=== PATIENT | male | born 1970 | race Two or more races ===

== ENCOUNTER 2020-04-26 17:25 | Emergency (ER) | payer MEDICAID ==
[~2020-04-26] VITALS: Ht 165.1 cm; Wt 83.0 kg
[2020-04-26 17:29] VITALS: Ht 165.1 cm; Wt 83.0 kg
[2020-04-26 18:39] VITALS: BP 156/96
== END 2020-04-26 18:39 | disposition home or self-care (01) ==
LOC: ED 17:25
DX: S52.502A Unspecified fracture of the lower end of left radius, initial encounter for closed fracture (principal); W11.XXXA Fall on and from ladder, initial encounter; Y93.89 Activity, other specified; Y92.89 Other specified places as the place of occurrence of the external cause; Y99.8 Other external cause status
CPT/HCPCS: Q0092

== ENCOUNTER 2020-05-04 11:12 | Emergency (ER) | payer MEDICAID ==
[~2020-05-04] VITALS: Ht 165.1 cm; Wt 82.6 kg
[2020-05-04 11:22] VITALS: BP 133/95; Ht 165.1 cm; Wt 82.6 kg
== END 2020-05-04 12:24 | disposition home or self-care (01) ==
LOC: ED 11:12
DX: S52.502D Unspecified fracture of the lower end of left radius, subsequent encounter for closed fracture with routine healing (principal); X58.XXXD Exposure to other specified factors, subsequent encounter